=== PATIENT | male | born 1990 | race Caucasian/White ===

== ENCOUNTER 2022-06-16 13:33 | Emergency (ER) | payer BC ==
[2022-06-16] MEDS ORDERED: Clindamycin HCl 150 MG Cap ONE (14:31)
[2022-06-16] MEDS ORDERED: Cefdinir 300 MG Cap ONE (14:31)
[2022-06-16] MEDS ORDERED: Cefdinir 300 MG Cap PO ONE (14:32)
[2022-06-16] MEDS ORDERED: Clindamycin HCl 150 MG Cap PO ONE (14:33)
[2022-06-16 14:43] LABS: RESPIRATORY SYNCYTIAL VIR NAA NEGATIVE (NEGATIVE)
[2022-06-16 14:47] LABS: CORONAVIRUS COVID-19 NAA POSITIVE (NEGATIVE)
== END 2022-06-16 15:00 | disposition home or self-care (01) ==
LOC: MERGE 13:33 → KA.ED 13:33
DX: U07.1 COVID-19 (principal); H66.92 Otitis media, unspecified, left ear
CPT/HCPCS: 0241U; 99283; 99284; A9270-GY